=== PATIENT | male | born 1980 | race Caucasian/White ===

== ENCOUNTER 2022-05-27 23:50 | Emergency (ER) | payer SELFPAY ==
[2022-05-28] MEDS ORDERED: Tamsulosin 0.4 MG Cap.ER PO ONE (00:20)
[2022-05-28] MEDS ORDERED: Ketorolac 30 MG/ML SDV IVPUSH STA (00:20)
[2022-05-28] MEDS ORDERED: Ondansetron 4 MG/2 ML SDV IVPUSH ONE (00:20)
[2022-05-28] MEDS ORDERED: HYDROmorphone 1 MG/ML Syringe IVPUSH ONE (00:20)
[2022-05-28] MEDS ORDERED: Sodium Chloride 0.9% 1,000 ML IV SCH (00:30)
[2022-05-28] MEDS ORDERED: Orphenadrine 100 MG Tab.ER PO STA (03:56)
== END 2022-05-28 04:06 | disposition home or self-care (01) ==
LOC: JD.ED 23:50
DX: M62.830 Muscle spasm of back (principal); F17.210 Nicotine dependence, cigarettes, uncomplicated; Z86.16 Personal history of COVID-19
CPT/HCPCS: 74176; 81001; 87086; 96361; 96374; 96375; 99284; A9270; J1170; J1885; J2405; J7030